=== PATIENT | female | born 1985 | race Caucasian/White ===

== ENCOUNTER → 2023-10-01 | Outpatient (REF) | payer OTHER ==
[2023-10-01 18:54] LABS: CREATININE,RANDOM URINE 30.9 MG/DL; TOTAL PROTEIN,RANDOM URINE < 6.0 MG/DL (0.0-14.0)
== END ==
LOC: M LAB REF 17:16
PROVIDERS: ATTEND Internal Medicine Nephrology
DX: I10 Essential (primary) hypertension (principal)